=== PATIENT | female | born 1995 | race Hispanic/Latino ===

== ENCOUNTER 2018-04-07 09:31 | Emergency (ER) | payer OTHER ==
[2018-04-07 10:04] VITALS: O2SAT 99
--- NOTE | 2018-04-07 10:42 | ED PDOC ---
Arrival/HPI - General Chief Complaint: Abnormal Skin Integrity Time Seen by Provider: 04/07/18 09:51 Historian: Patient - History of Present Illness Narrative History of Present Illness (Text): 04/07/18 10:58 23-year-old female presents today with a rash to the right knee that has spread to the neck forearm and hand. Patient states 2 days ago while at work she had chemical spill on her right knee. Patient now states that she didn't seek medical attention and follow report at the time of the incident and she was placed into the shower and had the wound cleaned and had a cream applied. Patient states she has noticed that she now has a rash on the posterior neck on the right hand and along the forearm. Patient states she has been working with these chemicals for a long time and has noticed that she has been having allergi c reactions and is scheduled for follow-up with a home health administrator. No medications have been taken at home. Patient states the rash on the knee has actually improved since earlier this morning. Patient states she has been feeling slight tightness in the chest but denies shortness of breath. No chest pain. No fevers or chills. No other complaints Past Medical History - Provider Review Nursing Documentation Reviewed: Yes - Travel History Have you recently traveled outside [place] w/in the past 3 mons?: No - Tetanus Immunization Tetanus Immunization: Unknown - Psychiatric Hx Substance Use: No - Anesthesia Hx Anesthesia: No Hx Anesthesia Reactions: No Hx Malignant Hyperthermia: No Family/Social History - Physician Review Nursing Documentation Reviewed: Yes Family/Social History: Unknown Family HX Smoking Status: Never Smoked Hx Alcohol Use: Yes Frequency of alcohol use: Socially Hx Substance Use: No Allergies/Home Meds Allergies/Adverse Reactions: Allergies pineapple Allergy (Verified 04/07/18 09:57) URTICARIA Home Medications: Home Meds Medication Instructions Recorded Confirmed Levonorgestrel-Ethin Estradiol 1 tab PO DAILY 04/07/18 04/07/18 [Jolessa 0.15 mg-0.03 mg Tablet] Sertraline [Zoloft] 50 mg PO DAILY 04/07/18 04/07/18 Review of Systems - Review of Systems Constitutional: absent: Fatigue, Fevers Respiratory: absent: SOB, Cough Cardiovascular: absent: Chest Pain, Palpitations Gastrointestinal: absent: Abdominal Pain, Nausea, Vomiting Musculoskeletal: absent: Arthralgias Skin: Rash, Pruritis Neurological: absent: Headache, Dizziness Psychiatric: absent: Anxiety, Depression Physical Exam Vital Signs Reviewed: Yes Vital Signs Temp Pulse Resp BP Pulse Ox 04/07/18 09:31 98.8 F 89 18 124/80 99 Temperature: Afebrile Blood Pressure: Normal Pulse: Regular Respiratory Rate: Normal Appearance: Positive for: Well-Appearing, Non-Toxic, Comfortable Pain Distress: None Mental Status: Positive for: Alert and Oriented X 3 - Systems Exam Head: Present: Atraumatic Mouth: Present: Moist Mucous Membranes Neck: Present: Normal Range of Motion Respiratory/Chest: Present: Clear to Auscultation, Good Air Exchange. No: Respiratory Distress, Accessory Muscle Use Cardiovascular: Present: Regular Rate and Rhythm, Normal S1, S2. No: Murmurs Lower Extremity: Present: Normal ROM. No: Normal Inspection (right knee there are pinpoint erythematous blanching papules noted to the superior, medial and inferior aspect of the knee in a C-shape. non tender. ), Tenderness Neurological: Present: GCS=15, Speech Normal Skin: Present: Warm, Dry, Rashes (there are small pinpoint erythematous papules noted to the posterior neck, the dorsal aspect of the left arm. ), Normal Color Psychiatric: Present: Alert, Oriented x 3 Medical Decision Making ED Course and Treatment: 04/07/18 11:03 Patient is nontoxic well-appearing in no distress with stable vital signs no angioedema. Lungs are clear to auscultation bilaterally there is no wheezing noted. The airway is patent Benadryl 50 mg po prednisone 60mg po Pepcid 20 mg po Patient reassessment: After medications patient is feeling much better the lungs are clear to auscultation bilaterally the airway is patent the patient is speaking in full sentences. I advised taking Benadryl every 6 hours as needed for itch, pepcid daily, and prednisone daily x4 days. Advised patient to follow up with primary care physician within the next 2 days and return if symptoms worsen persist or if new symptoms develop Patient verbalizes understanding of discharge instructions and need for immediate followup. all aspects of this case were discussed the attending of record. Impression :Allergic reaction Benadryl every 6 hours as needed for itch Prednisone once daily x4 days Pepcid one tablet daily Follow up with the primary care physician tomorrow Follow up with the home health administrator/production expediter within the next 2 days. Return if symptoms worsen persist or if new symptoms develop: Shortness of breath, feeling of throat closing, difficulty speaking or any other concerning symptoms develop Disposition/Present on Arrival - Present on Arrival Any Indicators Present on Arrival: No History of DVT/PE: No History of Uncontrolled Diabetes: No Urinary Catheter: No History of Decub. Ulcer: No History Surgical Site Infection Following: None - Disposition Have Diagnosis and Disposition been Completed?: Yes Diagnosis: Allergic reaction Disposition: HOME/ ROUTINE Disposition Time: 10:40 Patient Plan: Discharge Patient Problems: Current Active Problems Problem Status Onset Allergic reaction Acute Condition: GOOD Discharge Instructions (ExitCare): Drug Allergy Additional Instructions: Benadryl every 6 hours as needed for itch Prednisone once daily x4 days Pepcid one tablet daily Follow up with the primary care physician tomorrow Follow up with the home health administrator/production expediter within the next 2 days. Return if symptoms worsen persist or if new symptoms develop: Shortness of breath, feeling of throat closing, difficulty speaking or any other concerning symptoms develop Prescriptions: DiphenhydrAMINE [Benadryl] 25 mg PO Q6H #20 cap Famotidine [Pepcid] 20 mg PO DAILY #30 tab predniSONE [predniSONE Tab] 2 tab PO DAILY #8 tab Referrals: Latonya Ferguson MD [Staff Provider] - Follow up with primary Leora Chavarria MD [Medical Doctor] - Follow up with primary [facility] [Outside] - Follow up with primary Forms: [facility] (Guatemalan), WORK NOTE
[2018-04-07 12:47] VITALS: BP 123/85; PULSE 88; RESP 20
[2018-04-07 12:48] VITALS: TEMP 98.9
== END 2018-04-07 12:48 | disposition home or self-care (01) ==
LOC: ED 09:31
DX: T78.40XA Allergy, unspecified, initial encounter (principal)